=== PATIENT | female | born 1950 | race Caucasian/White ===

== ENCOUNTER → 2019-03-23 | Outpatient (CLI) | payer MEDICARE, OTHER, SELFPAY | PROVIDERS: Family Provider Family Medicine; Visit Provider Family Medicine | DX: N63.10 Unspecified lump in the right breast, unspecified quadrant (principal) | CPT/HCPCS: 76642; 77065 ==

== ENCOUNTER → 2020-03-08 14:59 | Outpatient (BNVA) | payer MEDICARE, OTHER, SELFPAY | PROVIDERS: Family Provider Family Medicine; Visit Provider Internal Medicine | DX: Z01.818 Encounter for other preprocedural examination (principal); K22.2 Esophageal obstruction | CPT/HCPCS: 87635 ==

== ENCOUNTER 2020-03-13 10:52 | Day surgery (SDC) | payer MEDICARE, OTHER, SELFPAY ==
--- NOTE | 2020-03-13 09:51 | W.PM.OPSUD ---
Surgery/Procedure H&P Update DATE OF PROCEDURE: March 13, 2020 DATE H&P PERFORMED: 03/08/20 PLANNED PROCEDURE: Operation Date: 03/13/20 10:30 Proposed Procedures p EGD K22.2 73219(Not Applicable) - Job Coronado MD
--- NOTE | 2020-03-13 11:21 | ANES.PREANE2 ---
Pre-Anesthetic Assessment Pre-Anesthetic Assessment: Height/Weight: Height 1.52 m Weight 69.853 kg Preop Diagnosis: gerd Proposed Procedure: Operation Date: 03/13/20 10:30 Proposed Procedures p EGD K22.2 [id number](Not Applicable) - Job Coronado MD Familial anesthetic complications: na Was Beta Dmitriy taken within 24 hours: N/A Last intake: Intake Last Liquid Date 03/13/20 Last Liquid Time 07:30 Last Solid Date 03/12/20 Last Solid Time 20:00 Last Intake: 23:00 Social: Social History: Tobacco Packs per day: 1ppd Pack years: 55+ Exam: Pre-Anes Outpt Exam: alert, oriented x 3, clear to auscultation bilaterally (dim bilateral) and regular rate & rhythm Airway: Submandibular: WNL Cervical ROM: WNL MP: 2 Dentition: Full Pulmonary: Pulmonary: COPD and QUIROGA CV/HEM: CV/HEM: HTN : : None reported Hepatic: Hepatic: None reported GI: GI: GERD Metabolic: Metabolic: Thyroid Musc/skel: Musc/skel: None reported Neuropsych: Neuropsych: None reported Anesthetic Plan: ASA status: 3 Anesthesia: MAC Risk of > 500 ml blood loss (7ml/kg in children): No PFSH Anesthesia PFSH: Family History (Updated 03/08/20 @ 14:[address]) Father Cancer Diabetes Heart disease Mother Diabetes Heart disease Brother Diabetes Heart disease Sister Diabetes Heart disease Social History (Updated 03/08/20 @ 14:[address]) Smoking and tobacco status: former smoker Alcohol intake: never Adopted: No Marital status: Number of children: 2 service: No History of recent travel: No Current gender identity: Female Data Anesthesia Cardiac Studies: No Data to Display
[2020-03-13] MEDS: sodium chloride 0.9% 1,000 ML 30 ML IV (11:28)
[2020-03-13 11:43] VITALS: BP 97/50; PULSE 77; RESP 16; TEMP 36.5; O2SAT 95
[2020-03-13 11:59] VITALS: BP 116/60; PULSE 72; RESP 16; O2SAT 99
--- NOTE | 2020-03-13 12:53 | ANE.PACU2 ---
Inpatient post-anesthesia follow up: Airway intact: Yes Vital signs: Temperature 97.7 F Pulse Rate 72 Respiratory Rate 16 Blood Pressure 116/60 Pulse Oximetry 99 Oxygen Delivery Me thod Room Air Oxygen Flow Rate Fraction of Inspir ed Oxygen Hydration adequate: Yes Nausea and vomiting: No Pain level: 1 Mental status: Baseline
[2020-03-14 06:10] LABS: H. Pylori / CLO Test Negative
== END 2020-03-13 12:19 | disposition home or self-care (01) ==
PROVIDERS: Family Provider Family Medicine; Visit Provider Internal Medicine
PROC: 0DJ08ZZ Inspection of Upper Intestinal Tract, Via Natural or Artificial Opening Endoscopic (ICD-10-PCS; CPT 43235; principal; 2020-03-13 10:30)
DX: K29.70 Gastritis, unspecified, without bleeding (principal); Z87.19 Personal history of other diseases of the digestive system; Z82.49 Family history of ischemic heart disease and other diseases of the circulatory system; Z87.891 Personal history of nicotine dependence
CPT/HCPCS: 12345; 43239; 87077; J2704; J7030

== ENCOUNTER 2020-09-11 15:23 | Outpatient (CLI) | payer MEDICARE, OTHER, SELFPAY ==
--- NOTE | 2020-09-11 16:00 | MR_ITS ---
WS: [id number] MRI CERVICAL SPINE NONCONTRAST HISTORY: CERVICAL SPONDYLOSIS W/OUT MYELOPATHY OR RADICULOPATHY COMPARISON: None available. Technique: Multiplanar, multisequence noncontrast imaging of the cervical spine. Mild straightening of the normal cervical lordosis. C4 anterolisthesis by 2 mm. Moderate to severe de generative disc disease at C5-6 and C6-7. Endplate osteophytes and mild disc bulging throughout the c ervical spine. No marrow edema or fracture. Signal within the cervical cord is normal. Visualized posterior fossa is unremarkable. Craniocervical junction, C1 and C2 relationship, odontoid process and soft tissues are normal. C2-C3: Shallow central disc protrusion, no stenosis. C3-C4: Diffuse annular disc bulging with osteophytic ridging. Shallow central disc protrusion. Disc s lightly contacts the ventral thecal sac. Mild central and LEFT foraminal stenosis. Moderate RIGHT for aminal stenosis. C4-C5: Diffuse annular disc bulging and osteophytic ridging. Moderate size central disc protrusion. D isc osteophyte resulting in mild central and bilateral foraminal stenosis. C5-C6: Diffuse annular disc bulging and osteophytic ridging. Effacement of ventral CSF. Mild central with moderate RIGHT and mild LEFT foraminal stenosis. C6-C7: Diffuse osteophytic ridging with moderate central and bilateral foraminal stenosis. C7-T1: Normal. Paraspinal soft tissue are normal. MR/MR cervical spin wo con* [id number] IMPRESSION: 1. Advanced degenerative disc disease and spondylitic changes, most significan t at C5-6 and C6-7. 2. Moderate central and bilateral foraminal stenosis at C6-7 due to disc osteo phyte disease. 3. Moderate RIGHT foraminal stenosis at C3-4 and C5-6 with mild central and LE FT foraminal stenosis. 4. Moderate central disc protrusion at C4-5 with mild central and bilateral fo raminal stenosis.
== END 2020-09-11 15:24 | disposition home or self-care (01) ==
LOC: RADSHAW 15:30
PROVIDERS: PCP Nurse Practitioner Family; Visit Provider Nurse Practitioner Family
DX: M47.812 Spondylosis without myelopathy or radiculopathy, cervical region (principal); M50.322 Other cervical disc degeneration at C5-C6 level; M48.02 Spinal stenosis, cervical region; M50.221 Other cervical disc displacement at C4-C5 level
CPT/HCPCS: 72141

== ENCOUNTER → 2020-09-19 13:41 | Outpatient (BNVA) | payer MEDICARE, OTHER, SELFPAY | PROVIDERS: PCP Nurse Practitioner Family; Referring Provider Nurse Practitioner Family; Visit Provider Orthopaedic Surgery | DX: M54.2 Cervicalgia (principal); M48.02 Spinal stenosis, cervical region; M54.9 Dorsalgia, unspecified | CPT/HCPCS: 72050 ==

== ENCOUNTER 2020-12-18 10:03 | Outpatient (CLI) | payer MEDICARE, OTHER, SELFPAY ==
--- NOTE | 2020-12-18 10:11 | CT_ITS ---
WS: [id number] LDCT LUNG CANCER SCREENING HISTORY: NICOTINE DEPENDENCE TECHNIQUE: Axial imaging performed from the apices to 1 cm below the costophrenic angles. Coronal and sagittal reformats are submitted with axial MIP series. All CT scans at [facility] use at least one of these dose optimization techniques: automated exposure control; mA and/or kV adjustment per patient size (includes targeted exams where dose is matched to clinical indication); or iterativ e reconstruction. DLP: 56.96 mGy.cm DIvol: 1.58 mGy COMPARISON: None available. Diagnostic quality: Satisfactory Lung Nodules: Pleural thickening at the RIGHT apex. 7 mm slightly irregular nodule in the RIGHT later al upper lobe. Mild thickening of the distal airways throughout all lobes. Lungs: Marked emphysema. Heart: Normal size heart. No effusion. Other findings: Prior LEFT mastectomy with implant. Hepatic cysts. Atherosclerosis aorta. CT/CT lung screening [id number] IMPRESSION: LUNG-RADS: 3-Probably Benign FOLLOW UP: 6 Month LDCT OTHER FINDINGS (S MODIFIER): None.
== END 2020-12-18 10:04 | disposition home or self-care (01) ==
LOC: CT 10:05
PROVIDERS: PCP Nurse Practitioner Family; Visit Provider Nurse Practitioner Family
DX: Z12.2 Encounter for screening for malignant neoplasm of respiratory organs (principal); F17.210 Nicotine dependence, cigarettes, uncomplicated
CPT/HCPCS: 71271

== ENCOUNTER 2021-06-11 09:39 | Outpatient (CLI) | payer MEDICARE, OTHER, SELFPAY ==
--- NOTE | 2021-06-11 10:02 | CT_ITS ---
WS: [id number] CT CHEST TECHNIQUE: Contrast enhanced CT of the chest with coronal and sagittal reformatted images. CLINICAL INFORMATION: CHRONIC OBSTRUCTIVE PULMONARY DZ COMPARISON: CT December 18, 2020 DLP: 593.[address] scans at [facility] use at least one of these dose optimization techniques: automated e xposure control; mA and/or kV adjustment per patient size (includes targeted exams where dose is matc hed to clinical indication); or iterative reconstruction. FINDINGS: Prior LEFT mastectomy with breast prosthesis. Stable 7 mm slightly spiculated nodule in the RIGHT upp er lobe laterally unchanged since December 18, 2020. Fibrosis and pleural thickening in the RIGHT up per lobe. Stable subpleural nodule in the RIGHT upper lobe laterally measuring 4 mm. New slightly spi culated opacity in the RIGHT middle lobe measuring 6 mm. Fibrosis and subsegmental atelectasis in the RIGHT middle lobe. A few tiny noncalcified subpleural nodules in the RIGHT lower lobe. Stable slight ly spiculated fibrotic opacity in the RIGHT lower lobe laterally measuring 5 mm. Advanced chronic emphysematous changes. Fibrosis in the lingula. Calcified granuloma LEFT upper lobe. Normal caliber thoracic aorta. Aortic calcification. Coronary calcification. No mediastinal or hilar lymphadenopathy. No axillary lymphadenopathy. Diffuse fatty infiltration liver. Hepatic cysts in the dome the liver th e largest measuring 3.9 CM. Adrenal glands are normal. Normal GE junction. Schmorl's nodes in the tho racic spine. CT/CT chest w con* [id number] IMPRESSION: 1. Previously described slightly spiculated 7 mm opacity in the RIGHT upper lo be laterally is unchanged. 2. New slightly spiculated 6 mm millimeter opacity in RIGHT middle lobe is new from previous. Recommend 3 month follow-up chest CT. 3. Slightly spiculated fibrotic opacity in the RIGHT lower lobe laterally sana uring 5 mm is unchanged from previous. 4. Additional subcentimeter pulmonary nodules bilaterally. 5. Advanced chronic emphysematous changes. 6. No mediastinal or hilar lymphadenopathy. 7. Stable hepatic cysts in the dome of the liver.
[2021-06-11] MEDS: iohexol 300 mg/mL 100 mL Btl IV (10:56)
== END 2021-06-11 09:40 | disposition home or self-care (01) ==
LOC: RAD 09:50
PROVIDERS: PCP Nurse Practitioner Family; Visit Provider Nurse Practitioner Family
DX: J44.9 Chronic obstructive pulmonary disease, unspecified (principal); K76.89 Other specified diseases of liver; R91.8 Other nonspecific abnormal finding of lung field
CPT/HCPCS: 71260

== ENCOUNTER 2021-06-27 13:43 | Outpatient (CLI) | payer MEDICARE, OTHER, SELFPAY ==
--- NOTE | 2021-06-27 14:03 | USCV_ITS ---
Junior Jackson Age: 70 Gender: F : 1950 Exam Date: 06/27/2021 14:25 Ordering Phys: Sierra Lieberman Technologist: [place] [facility] [place]: bilat [place] PROCEDURES: Venous duplex imaging was performed in bilateral lower extremities. The following venous structures were evaluated: common femoral vein, profunda vein, proximal portion of the greater saphenous vein, superficial femoral vein, and the popliteal vein. FINDINGS: Normal 2-D Doppler and augmentation and compressibility throughout the lower extremity venous structures. Additional imaging through the proximal calf veins also reveals no thrombus. Limited evaluation of the greater saphenous vein is patent with no thrombus.. CONCLUSIONS No DVT bilateral lower extremities. Dr. Ashanti Caceres DO (Electronically Signed) Final Date: 27 June 2021 15:15 S
== END 2021-06-27 13:44 | disposition home or self-care (01) ==
LOC: RAD 13:50
PROVIDERS: PCP Nurse Practitioner Family; Visit Provider Nurse Practitioner Family
DX: R60.0 Localized edema (principal)
CPT/HCPCS: 93970

== ENCOUNTER 2021-09-25 06:00 | Outpatient (RCR) | payer MEDICARE, OTHER, SELFPAY | END 2021-10-21 23:59 | disposition home or self-care (01) | LOC: WPT 06:00 | PROVIDERS: PCP Nurse Practitioner Family; Referring Provider Orthopaedic Surgery Sports Medicine; Visit Provider Orthopaedic Surgery Sports Medicine | DX: M54.2 Cervicalgia (principal) | CPT/HCPCS: 97110; 97140; 97161 ==

== ENCOUNTER 2021-10-22 06:00 | Outpatient (RCR) | payer MEDICARE, OTHER, SELFPAY | END 2021-11-21 23:59 | disposition home or self-care (01) | LOC: WPT 06:00 | PROVIDERS: PCP Nurse Practitioner Family; Referring Provider Orthopaedic Surgery Sports Medicine; Visit Provider Orthopaedic Surgery Sports Medicine | DX: M54.2 Cervicalgia (principal) | CPT/HCPCS: 97110; 97140; 97530 ==

== ENCOUNTER 2021-11-22 06:00 | Outpatient (RCR) | payer MEDICARE, OTHER, SELFPAY | END 2021-12-21 23:59 | disposition home or self-care (01) | LOC: WPT 06:00 | PROVIDERS: PCP Nurse Practitioner Family; Visit Provider Orthopaedic Surgery Sports Medicine | DX: M54.2 Cervicalgia (principal) | CPT/HCPCS: 97110; 97140 ==

== ENCOUNTER 2021-12-22 06:00 | Outpatient (RCR) | payer MEDICARE, OTHER, SELFPAY | END 2022-01-21 23:59 | disposition home or self-care (01) | LOC: WPT 06:00 | PROVIDERS: PCP Nurse Practitioner Family; Visit Provider Orthopaedic Surgery Sports Medicine | DX: M54.2 Cervicalgia (principal) | CPT/HCPCS: 97110; 97140 ==